=== PATIENT | male | born 1995 | race African-American/Black ===

== ENCOUNTER → 2019-11-01 | Outpatient (CLI) | payer OTHER ==
--- NOTE | 2019-11-01 19:49 | REP ---
Body PET CT scan: The the patient is a 24-year-old male with who had chronic right knee pain. 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 Whole body PET CT scanning is performed from the top of the calvarium to the feet. Head, neck and supraclavicular areas: There are no hypermetabolic foci. There is artifactual uptake in tonsillar tissues. Chest: There are no hypermetabolic foci. Abdomen, pelvis and upper thighs: There are no hypermetabolic foci. The distal thighs, knees, ankles and feet: There are no hypermetabolic foci. Upper extremities: There are no hypermetabolic foci. On the CT scan accompanying the PET scan. There are no lytic, blastic or destructive skeletal changes, particularly in the knees. Impression: There are no hypermetabolic foci. On the CT scan accompanying the PET scan. There are no lytic, blastic or destructive skeletal changes. The study is performed with 8.62 mCi of F 18 FDG. Electronically Signed by Davy Rivera MD 11/01/2019 07:41 P
== END ==
LOC: M PLARAD 14:35
PROVIDERS: ATTEND Physician Assistant Medical
DX: M25.561 Pain in right knee (principal)
CPT/HCPCS: 78816; A9552